=== PATIENT | male | born 1990 | race Caucasian/White ===

== ENCOUNTER 2025-07-26 11:02 | Emergency (ER) | payer OTHER ==
[2025-07-26] MEDS ORDERED: Naloxone Hydrochloride 2 MG/2 ML SYR IV ONE (11:10)
[2025-07-26] MEDS ORDERED: SODIUM CHLORIDE 0.9% 1,000 ML IV ONE (11:10)
[2025-07-26 11:26] LABS: BASO # 0.1 10*3/uL (0.0-0.1); BASO % 0.6 % (0.0-1.0); EOS # 0.3 10*3/uL (0.0-0.4); EOS % 3.3 % (1.0-4.0); MEAN CELL VOLUME 92.6 fl (80.0-94.0); MEAN CORPUSCULAR HGB 30.8 pg (27.0-31.0); MEAN PLATELET VOLUME 9.2 fl (9.6-12.3); MONO # 0.6 10*3/uL (0.1-1.0); MONO % 6.3 % (3.0-9.0); NEUT # 6.5 10*3/uL (2.3-7.9); NEUT % 74.9 % (47.0-73.0); NUCLEATED RED BLOOD CELL 0.0 % (0.0-0.0); NUCLEATED RED BLOOD CELL 0.0 10*3/uL (0.0-0.0); PLATELET COUNT AUTOMATED 288 10*3/uL (130-400); RED CELL DISTRI WIDTH 13.1 % (0-14.5)
[2025-07-26] MEDS ORDERED: Naloxone Hydrochloride 2 MG/2 ML SYR ONE (11:27)
[2025-07-26 11:48] LABS: BUN 16 mg/dl (9-23); ETHYL ALCOHOL < 3.0 mg/dl (<3); SGPT/ALT 14 U/L (5-49)
[2025-07-26 12:06] LABS: ACT PARTIAL THROMBO TIME 26.7 SECONDS (20.0-32.1)
[2025-07-26 14:33] LABS: URINE AMPHETAMINES Positive (1000ng/ml); URINE BARBITURATES Negative (200ng/ml); URINE BENZODIAZEPINES Negative (200ng/ml); URINE CANNABINOIDS (THC) Positive (50ng/ml); URINE COCAINE Negative (300ng/ml); URINE METHADONE Negative (300ng/ml); URINE OPIATES Negative (300ng/ml); URINE PHENCYCLIDINE Negative (25ng/ml)
[2025-07-26] MEDS ORDERED: CEPHALEXIN500 M1 PO (15:05)
== END 2025-07-26 15:25 | disposition home or self-care (01) ==
LOC: ED
PROVIDERS: Internal Medicine
DX: F15.10 Other stimulant abuse, uncomplicated (principal); R41.82 Altered mental status, unspecified; R60.0 Localized edema; Z20.822 Contact with and (suspected) exposure to COVID-19